=== PATIENT | female | born 1955 | race Caucasian/White ===

== ENCOUNTER 2020-10-15 10:46 | Outpatient (REF) | payer MEDICAID, SELFPAY ==
--- NOTE | 2020-10-15 11:01 | XR_ITS ---
EXAMINATION: XR KNEE, RIGHT CLINICAL INFORMATION: Polyarthritis. COMPARISON: None TECHNIQUE: Four views of the right knee. FINDINGS: Mild medial femoral-tibial joint space narrowing is seen. Mild patellofemoral degenerative joint changes are seen. There is no acute fracture or dislocation. There is no joint effusion. The soft tissues are unremarkable. XR/XR knee RT 4V IMPRESSION: Mild medial femoral-tibial joint space narrowing may be degenerative in nature. Mild patellofemoral degenerative joint changes suggesting osteoarthritis.
--- NOTE | 2020-10-15 11:01 | XR_ITS ---
EXAMINATION: XR KNEE, LEFT CLINICAL INFORMATION: Polyarthritis. COMPARISON: None TECHNIQUE: Four views of the left knee. FINDINGS: Mild medial femoral-tibial joint space narrowing is seen. There is no acute fracture or dislocation. There is no joint effusion. The soft tissues are unremarkable. XR/XR knee LT 4V IMPRESSION: Mild medial femoral-tibial joint space narrowing may be degenerative in nature suggesting mild osteoarthritis.
== END 2020-10-15 10:47 | disposition home or self-care (01) ==
LOC: HO.XRAY 10:46
PROVIDERS: PCP Internal Medicine; Visit Provider Internal Medicine
DX: M15.8 Other polyosteoarthritis (principal)
CPT/HCPCS: 73564

== ENCOUNTER 2022-07-07 08:50 | Outpatient (REF) | payer MEDICAID, SELFPAY ==
--- NOTE | ~2022-07-07 | MM_ITS ---
EXAMINATION: BONE DENSITOMETRY CLINICAL INDICATION: Asymptomatic menopausal state. COMPARISON: None (current study represents initial baseline exam). TECHNIQUE: Using a [employer] DXA System (software version: 13.1) manufactured by [employer], dual-energy x-ray absorptiometry was performed of the lumbar spine and left hip. The images are of good technical quality. Summary results are attached. FINDINGS: AP SPINE L1-L4: BMD 0.906 g/cm2, Z-score -0.6, T-score -2.3, osteopenia. LEFT FEMUR, NECK: BMD 0.815 g/cm2, Z-score -0.1, T-score -1.6, osteopenia. LEFT FEMUR, TOTAL: BMD 0.836 g/cm2, Z-score -0.1, T-score -1.4, osteopenia. IDENTIFIED RISK FACTORS: Menopause, history of fracture (adult). HISTORY OF FRACTURE: Pelvis, spine. Other. MEDICATIONS: Vitamin D. MM/XR DEXA axial skeleton IMPRESSION: 1. DIAGNOSIS: Osteopenia based on the lowest T-score value of -2.3 in the lumbar spine applying World Health Organization criteria. 2. 10-YEAR FRACTURE RISK PREDICTION, FRAX: Major osteoporotic fracture (clinical spine, forearm, hip or shoulder) 8.6%. Hip fracture 1.0%. 3. Treatment Recommendations: NOF guidelines recommend consideration for treatment in postmenopausal women and men age 50 and older presenting with the following: -A hip or vertebral (clinical or morphometric) fracture. -T-score less than or equal to -2.5 at the femoral neck or spine after appropriate evaluation to exclude secondary causes. -Low bone mass at the hip or spine and a 10-year fracture probability by FRAX of greater than or equal to 3% for hip fracture or greater than or equal to 20% for major osteoporotic fracture based on the [place] adapted WHO algorithm. 4. Other Recommendations: All treatment decisions require clinical judgment and consideration of individual patient factors, including patient preferences, comorbidities, previous drug use, risk factors not captured in the FRAX model (e.g. frailty, falls, vitamin D deficiency, increased bone turnover, interval significant decline in bone density) and possible under or overestimation of fracture risk by FRAX. Additional medical evaluation for secondary cause of low bone mineral density may be appropriate. FUTURE SCAN RECOMMENDATION: People with diagnosed cases of osteoporosis or at high risk for fracture should have regular bone mineral density tests. For patients eligible for Medicare, routine testing is allowed once every 2 years. The testing frequency can be increased to one year for patients who have rapidly progressing disease, those who are receiving or discontinuing medical therapy to restore bone mass, or have additional risk factors.
== END 2022-07-07 08:51 | disposition home or self-care (01) ==
LOC: HO.MAMMO 08:50
PROVIDERS: Visit Provider Internal Medicine
DX: Z13.820 Encounter for screening for osteoporosis (principal); Z78.0 Asymptomatic menopausal state
CPT/HCPCS: 77080

== ENCOUNTER 2022-08-25 08:46 | Outpatient (REF) | payer MEDICAID, SELFPAY | END 2022-08-25 08:47 | disposition home or self-care (01) | LOC: HO.US 08:46 | PROVIDERS: Visit Provider Surgery Vascular Surgery | DX: Z13.89 Encounter for screening for other disorder (principal) ==

== ENCOUNTER → 2023-07-04 08:47 | Outpatient (BNVA) | payer OTHER, SELFPAY | PROVIDERS: PCP Internal Medicine; Visit Provider Physician Assistant | DX: S63.613A Unspecified sprain of left middle finger, initial encounter (principal); X50.1XXA Overexertion from prolonged static or awkward postures, initial encounter; M54.50 Low back pain, unspecified; M25.552 Pain in left hip | CPT/HCPCS: 99204 ==

== ENCOUNTER → 2023-07-09 12:47 | Outpatient (BNVA) | payer OTHER, SELFPAY | PROVIDERS: PCP Internal Medicine; Visit Provider Physician Assistant Medical | DX: S63.653A Sprain of metacarpophalangeal joint of left middle finger, initial encounter (principal); S39.012A Strain of muscle, fascia and tendon of lower back, initial encounter; Y99.0 Civilian activity done for income or pay; M25.552 Pain in left hip; M79.605 Pain in left leg | CPT/HCPCS: 99213 ==

== ENCOUNTER → 2023-07-25 10:32 | Outpatient (BNVA) | payer OTHER, SELFPAY | PROVIDERS: PCP Psychiatry & Neurology Psychiatry; Visit Provider Physician Assistant Medical | DX: S63.633A Sprain of interphalangeal joint of left middle finger, initial encounter (principal); X58.XXXA Exposure to other specified factors, initial encounter; M54.50 Low back pain, unspecified; M25.552 Pain in left hip | CPT/HCPCS: 99213 ==

== ENCOUNTER → 2023-08-15 11:45 | Outpatient (BNVA) | payer OTHER, SELFPAY | PROVIDERS: PCP Psychiatry & Neurology Psychiatry; Visit Provider Physician Assistant Medical | DX: S63.613D Unspecified sprain of left middle finger, subsequent encounter (principal); X50.1XXD Overexertion from prolonged static or awkward postures, subsequent encounter | CPT/HCPCS: 99213 ==

== ENCOUNTER 2023-08-31 13:00 | Outpatient (RCR) | payer OTHER, MEDICAID, SELFPAY ==
--- NOTE | 2023-07-12 15:39 | MHC.OT.EP ---
[address] [phone] Occupational Therapy Plan of Care Patient Name: Amy Tristan Date of Evaluation: 07/12/23 Diagnosis: Left third digit sprain Pain Location: Left index finger Current: 8/10 Best: 8/10 Pain Score: 8 Pain Scale Used: Numeric (0 - 10) Aggravating Factors: Digit flexion, forceful grasp Alleviating Factors: Ice, medication Assessment: Pt is a 68 y/o female who sustained fall while at work resulting in left middle finger sprain. Utilized phone floor scraper to assist with evaluation questions. Pt presents with 8/10 pain in left middle finger, decreased joint ROM, decreased gross grasp strength, and difficulty performing ADL/IADL/work duties. An 88% limitation is reported per the Quick DASH assessment. Pt. will benefit from skilled OT to address noted barriers and assist in return to PLOF. Frequency and Duration: The patient will be seen 2x/wk for 4 weeks Short Term Goals: IND with jessica taping or orthosis wear Decrease pain <4/10 IND with HEP C4 Planner Goals: Pain free with BADL's/IADL's IND with progression of HEP Improve gross grasp >20# Quck DASH <40% Treatment Plan: Therapeutic Exercise Therapeutic Activity Home Exercise Program Splinting Patient Education Edema Control Ultrasound Fluidotherapy MHP Cold Packs Joint Mobilization Soft Tissue Mobilization Kinesiotaping Electronically Signed By: Claritza Jennings MS OTR/L Please Sign and return to therapist. Thank you once again for your referral.
--- NOTE | 2023-09-14 13:30 | MHC.OT.DC ---
[address] [phone] F: [phone] Occupational Therapy Discharge Note Patient Name: Amy Tristan Provider: Karen Ang Diagnosis: Left third digit sprain Date of Evaluation: 07/12/23 Date of Discharge: 09/14/23 Treatments to Date: 10 Cancellations to Date: 0 No Shows to Date: 6 Discharge Status: Improved Function Independent with HEP Recommend MD Follow-up Visit Non-compliance Discharge Summary: MS TRISTAN WAS SEEN FOR TEN OT RX SESSIONS. DURING HER COURSE, SHE FELT PAIN RELIEF WITH USE OF HEAT MODALITIES AND ISOMETRIC EXERCISES. Pt ALSO EDUCATED ON JT PROTECTION STRATEGIES FOR HOME AND WORK RELATED TASKS. DUE TO THE CORE ATTENDANCE POLICY, Pt WILL BE DISCHAREGED DUE TO VISIT NONCOMPLIANCE. Electronically Signed By: IVANA LAU OTR/Shilo Reviewed/agree with student documentation: N/A Therapist: Please Sign and return to therapist, thank you for your referral.
== END 2023-09-14 13:30 | disposition home or self-care (01) ==
LOC: HO.OT 13:00
PROVIDERS: PCP Psychiatry & Neurology Psychiatry; Visit Provider Physician Assistant Medical
DX: S63.613D Unspecified sprain of left middle finger, subsequent encounter (principal)
CPT/HCPCS: 97035; 97110; 97140; 97165

== ENCOUNTER → 2023-09-05 09:01 | Outpatient (BNVA) | payer OTHER, SELFPAY | PROVIDERS: PCP Psychiatry & Neurology Psychiatry; Visit Provider Physician Assistant Medical | DX: M79.642 Pain in left hand (principal) | CPT/HCPCS: 99213 ==

== ENCOUNTER 2023-09-14 16:05 | Outpatient (REF) | payer OTHER, SELFPAY | END 2023-09-14 16:06 | disposition home or self-care (01) | LOC: HO.HOSX 16:05 | PROVIDERS: Visit Provider Orthopaedic Surgery | DX: Z13.89 Encounter for screening for other disorder (principal) ==

== ENCOUNTER 2023-09-25 08:01 | Outpatient (REF) | payer OTHER, SELFPAY ==
--- NOTE | ~2023-09-25 | XR_ITS ---
EXAMINATION: XR HAND, LEFT CLINICAL INFORMATION: Pain in left hand. COMPARISON: Left finger 07/04/2023, 3rd digit TECHNIQUE: PA, lateral, and oblique views of the left hand. FINDINGS: Moderate degenerative changes in the 1st carpometacarpal joint with joint space narrowing and hypertrophic change. The bones are diffusely demineralized. Moderate degenerative changes with hypertrophic change and joint space narrowing in the 5th MCP joint as well as in scattered interphalangeal joints, most notable in the 2nd DIP joint. XR/XR hand LT min 3V IMPRESSION: Moderate degenerative changes. Recommend followup imaging in 10-14 days if fracture is suspected. Additional imaging with CT scan or MRI should be considered for better visualization as these modalities are much more sensitive for detection of fracture or other underlying pathology.
--- NOTE | ~2023-09-25 | XR_ITS ---
Examination: Skull, chest and abdomen. Clinical indications: Pre-MRI screening TECHNIQUE: Skull 2 views. Chest one view and KUB one view. FINDINGS: Skull: AP and lateral views of skull reveals no radiopaque foreign body. The paranasal sinuses and mastoid air cells are well-aerated. No calvarial abnormality seen. CHEST: The lungs are well-expanded and clear. The heart size and pulmonary vascularity is normal. There is mild dextroscoliosis mid dorsal spine. No radiopaque foreign body seen. There are no pacer electrodes or any hardware. KUB: There is moderate stool in the colon. Small phlebolith are visualized in the right pelvis. No radiopaque metallic foreign body. No gross bony abnormality. XR/XR pre mri screening IMPRESSION: No radiopaque foreign body or metallic objects seen on pre-MRI screening of skull, chest and abdomen exam
== END 2023-09-25 08:02 | disposition home or self-care (01) ==
LOC: HO.MRI 08:01
PROVIDERS: PCP Internal Medicine; Visit Provider Physician Assistant Medical
DX: M79.642 Pain in left hand (principal); M79.602 Pain in left arm
CPT/HCPCS: 73130

== ENCOUNTER → 2023-09-28 13:55 | Outpatient (BNVA) | payer OTHER, SELFPAY | PROVIDERS: PCP Internal Medicine; Visit Provider Physician Assistant Medical | DX: S63.613D Unspecified sprain of left middle finger, subsequent encounter (principal); X50.1XXD Overexertion from prolonged static or awkward postures, subsequent encounter | CPT/HCPCS: 99213 ==

== ENCOUNTER 2025-08-31 18:49 | Emergency (ER) | payer OTHER, SELFPAY ==
--- NOTE | ~2025-08-31 | CT_ITS ---
CLINICAL HISTORY: Fall hit head CT cervical spine without contrast Comparison: None provided Findings: Normal vertebral body alignment. No significant degenerative change. Mild osteopenia. Visualized intracranial contents are unremarkable. The right thyroid lobe is hypertrophic and heterogeneous in attenuation. Lung apices are clear. IMPRESSION: 1. Right thyroid lobe hypertrophy and heterogeneity; nonemergent thyroid ultrasound correlation suggested. 2. Mild osteopenia. 3. No acute osseous injury. This document has been electronically signed by: Talib Loyd MD on 08/31/2025 21:22:42
--- NOTE | ~2025-08-31 | CT_ITS ---
CLINICAL HISTORY: Fall CT head without contrast Comparison: None provided Findings: No intra-axial mass, midline shift, hydrocephalus, or acute hemorrhage. No significant atrophy-like change or white matter disease. The visualized paranasal sinuses and mastoid air cells are normal. The orbits are within normal limits. There is no acute fracture. IMPRESSION: 1. No acute intracranial findings. This document has been electronically signed by: Talib Loyd MD on 08/31/2025 21:39:45
[2025-08-31 18:54] VITALS: BP 146/98; PULSE 65; O2SAT 98
[2025-08-31 19:22] VITALS: BP 149/83; PULSE 63; RESP 18; TEMP 35.9; O2SAT 98; BMI 21.4
--- NOTE | 2025-08-31 19:28 | ED.GENADULT ---
HPI - General Adult General Chief complaint: Fall Stated complaint: fall +head strike, no thinners Time Seen by Provider: 08/31/25 20:19 Source: patient Limitations: language barrier History of Present Illness ED Provider: Ijeoma Tobin PA-C HPI narrative: 70-year-old female presents after fall. Patient states she was at work, she tripped, falling onto her left side with positive head strike. No loss consciousness the patient is not on blood thinners. Associated headache at this time. Related Data Previous Rx's ?Medication ?Instructions ?Recorded naproxen 500 mg tablet 500 mg PO BID PRN pain #30 tabs 07/04/23 cyclobenzaprine 5 mg tablet 5 mg PO BEDTIME PRN muscle spasm 07/09/23 #10 tabs Allergies Allergy/AdvReac Type Severity Reaction Status Date / Time No Known Allergies Allergy Verified 08/31/25 19:23 Review of Systems Review of Systems: Yes all other systems are reviewed and are negative Constitutional: Constitutional: Denies fatigue, Denies fever(s) and Denies headache(s) ENT: Denies dizziness, Denies headache(s) and Denies neck pain Cardiovascular: Cardiovascular: Denies syncope Gastrointestinal: Gastrointestinal: Denies nausea and Denies vomiting Musculoskeletal: Musculoskeletal: Denies neck pain Neurologic: Denies dizziness, Denies syncope and Denies headache(s) Endocrine: Endocrine: Denies fatigue PMF Past Medical History Attestation statement: The following information was validated with the patient. Social History Social History (Updated 09/07/22 @ 16:05 by Brayan Dominguez) Alcohol intake: never Patient Tobacco Use Status: Never used Tobacco Smoked in Last 30 Days: No Use of substances other than those prescribed or required for medical reasons: No Advance Directives: No Advance Directives Information Provided: Yes Physical Exam ED Vital Signs: Vital Signs - 24 hr 08/31/25 19:22 08/31/25 21:22 08/31/25 22:10 Temperature 96.7 F L 98.3 F 98.3 F Pulse Rate 63 64 64 Respiratory Rate 18 18 18 Blood Pressure 149/83 H 157/88 H 157/88 H Pulse Oximetry 98 96 96 Oxygen Delivery Method Room Air Room Air Room Air BMI result Body Mass Index 21.4 Const Other: Alert well-appearing no evidence of head trauma on exam Orientation/consciousness: patient oriented x3 Neck Neck: Yes full ROM Resp Effort & Inspection: normal respiratory effort Cardio Other: Normal peripheral perfusion Skin Other: Warm dry no rash Neuro General: patient oriented x3, gait normal, no focal motor deficits and CN's II-XI intact bilaterally Psych Other: Cooperative Medications Administered Discontinued Medications Generic Name Dose Route Start Last Admin Trade Name Freq PRN Reason Stop Dose Admin Ibuprofen 600 mg 08/31/25 21:52 08/31/25 22:16 Ibuprofen 600 Mg Tablet PO 08/31/25 21:53 600 mg ONCE ONE Administration Medical Decision Making Medical Decision Making [facility] Narrative: 70-year-old female presents after fall. Patient states she was at work, she tripped, falling onto her left side with positive head strike. No loss consciousness the patient is not on blood thinners. Associated headache at this time. No chronic issues History: Per patient I have considered the following differential diagnoses: Intracranial hemorrhage, cervical spine injury, contusion, concussion Plan: CTs of head and neck were ordered from triage, I do not feel she required the studies, everything is negative. I have independently reviewed the following tests: CT brain:Findings: No intra-axial mass, midline shift, hydrocephalus, or acute hemorrhage. No significant atrophy-like change or white matter disease. The visualized paranasal sinuses and mastoid air cells are normal. The orbits are within normal limits. There is no acute fracture. IMPRESSION: 1. No acute intracranial findings. CT cervical spine:. Right thyroid lobe hypertrophy and heterogeneity; nonemergent thyroid ultrasound correlation suggested. 2. Mild osteopenia. 3. No acute osseous injury. Differential Diagnosis Differential Diagnoses: The differential diagnosis associated with the presentation includes See medical decision-making Admission/Observation Consideration of admission/observation: Escalation of care including admission/observation considered Not applicable Radiology Impression Discussion of test interpretation with radiology: I have reviewed the radiologist's reading. Discharge Plan Discharge Clinical Impression: Contusion of forehead Patient Disposition: Home, Self-Care Instructions: Facial Contusion (ED) Additional Instructions: The CT scan of your head and neck were normal, you sustained a contusion of your forehead when you fell, this is another word for bruise. See home care instructions. You can ibuprofen 600 mg taken every 6 hours with food for your pain. Follow up with your primary care provider as needed. Prescriptions: No Action naproxen 500 mg tablet 500 mg PO BID PRN (Reason: pain) Qty: 30 0RF cyclobenzaprine 5 mg tablet 5 mg PO BEDTIME PRN (Reason: muscle spasm) Qty: 10 0RF Rx Instructions: Do not drive or operate machinery for 8 hours after taking this medicine Stand Alone Forms: Work/School Release Interventions: ED Discharge Assessment Last Done: 08/31/25 22:10 Discharge Date/Time: 08/31/25 22:42 Print Language: Croatian
--- OUTSIDE RECORDS SUMMARY | 2025-08-31 20:51 | XMS_ITS | Clinical Summary ---
Author Organization [employer] Address [address] [place] [address] Care Team Providers Care Bale Coverer Name Role Phone Tramaine Baldwin MD Primary Care Prov ider Allergies No known active allergies Medications naproxen (Naprosyn) 250 MG tablet Take by mouth. Active omeprazole (PriLOSEC) [address] capsule Take 1 capsule (20 mg) by mouth before breakfast. Do not crush or chew. 90 capsule 3 04/02/2023 Active Active Problems Problem Noted Date Diagnosed Date Varicose veins of both lower extremities with pa in 05/11/2023 Assessment & Plan (05/11/2023 2:16 PM EDT): Will place vascular surgery referral, told to wear compression stocking during the day Gastroesophageal reflux disease without esophagi tis 02/08/2023 Assessment & Plan (02/08/2023 5:03 PM EDT): On PPI, reinforced lifestyle changes, continue current treatment. Multiple joint pain 02/08/2023 Assessment & Plan (02/08/2023 5:04 PM EDT): Will start meloxicam, told she can also apply cold pads, if joint pain worsening depending on site we can consider PT Osteopenia of lumbar spine 02/08/2023 Assessment & Plan (02/08/2023 5:05 PM EDT): Continue oral supplement, repeat test in 2 years 06/2024 H/O colonoscopy 02/08/2023 Assessment & Plan (02/08/2023 5:06 PM EDT): Patient refer she got her colonoscopy done, will request results Mammogram declined 02/08/2023 Assessment & Plan (02/08/2023 5:07 PM EDT): Patient refused mammogram risk/benefits discussed Screening for cervical cancer 02/08/2023 Assessment & Plan (02/08/2023 5:07 PM EDT): Done on 02/10/22 next due on 2026 Social History Tobacco Use Types Packs/Day Years Used Date Smoking Tobacco: Never Tobacco Cessation:Counseling Given: Not Answered Depression Answer Date Recorded Patient Health Questionnaire-9 Score 0 01/11/2023 Housing Stability Answer Date Recorded What is your housing situation today? I have jean-paul richards 09/17/[address] you li ve. Do you have problems with any of the following? None of the above 09/17/2023 Food Insecurity Answer Date Recorded Within the past 12 months, y ou worried that your food would run out before you got money to buy more: Never True 09/17/2023 Within the past 12 months,th e food you bought just didn't last and you didn't have enough money to get more: Never True Transportation Answer Date Recorded In the past 12 months, has l ack of transportation kept you from medical appts, meetings, work or from getting things needed for daily living? No 09/17/2023 Utilities Answer Date Recorded In the past 12 months, has t he electric, gas, oil or water company threatened to shut off services in your home? No 09/17/2023 Depression Answer Date Recorded Patient Health Questionnaire-2 Score 0 01/11/2023 Comments Unknown Sex and Gender Information Value Date Recorded Sex Assigned at Female 09/25/2022 10:37 AM EDT Legal Sex Female 10:37 AM EDT Gender Identity Female 09/25/2022 10:37 AM EDT Sexual Orientation Straight 09/25/2022 10 :37 AM EDT Last Filed Vital Signs Vital Sign Reading Time Taken Comments Blood Pressure 138/88 05/11/2023 9:03 AM EDT Pulse 68 05/11/2023 9:03 AM EDT Temperature 36.6 C (97.8 F) 05/11/2023 9:03 AM EDT Respiratory Rate 16 05/11/2023 9:03 AM EDT Oxygen Saturation - - Inhaled Oxygen Concentration - - Weight 56.7 kg (125 lb) 05/11/2023 9:03 AM EDT Height 162.6 cm (5' 4 ) 05/11/2023 9:03 AM EDT Body Mass Index 21.46 05/11/2023 9:03 AM EDT Plan of Treatment Health Maintenance Due Date Last Done Comments CT Colonography 1957 Colonoscopy 1957 Colorectal Cancer Screening 1957 Dental Oral Exam 1957 Dental Prophylaxis 1957 Dental X-Ray: Full Mouth 1957 FIT DNA/Cologuard 1957 FIT 1957 FOBT 1957 Sigmoidoscopy 1957 Alcohol/Substance Use Screening 1969 Tobacco Screening 1969 Hepatitis C Screening 1975 DTaP/Tdap/Td Vaccines (1 - Tdap) 02/13/1976 Pneumococcal Vaccine: 50+ Years (1 of 1 - PCV) 2007 Zoster Vaccines (1 of 2) 2007 Dental X-Ray: Bitewings 10/28/2023 10/27/2022 Depression Screening 01/11/2024 01/11/2023, 01/11/2023 SDOH Screening 01/11/2024 01/11/2023 Mammogram 07/07/2024 07/07/2022 COVID-19 Vaccine (4 - 2024-2 6 season) 2025 11/18/2021, 05/03/2021, 04/12/2021 Influenza Vaccine (#1) 2025 RSV Patients and Patients Aged 60 years or older (1 - 1-dose 75+ series) 02/13/2032 Cervical Cancer Screening Discontinued HPV/Cotest Discontinued 02/10/2022 Pap Smear Discontinued 02/10/2022 HIB Vaccines Aged Out No longer eligi ble based on patient's age to complete this topic HPV Vaccines Aged Out No longer eligi ble based on patient's age to complete this topic Hepatitis A Vaccines Aged Out No long er eligible based on patient's age to complete this topic Hepatitis B Vaccines Aged Out No long er eligible based on patient's age to complete this topic IPV Vaccines Aged Out No longer eligi ble based on patient's age to complete this topic Meningococcal B Vaccine Aged Out No l onger eligible based on patient's age to complete this topic Meningococcal Vaccine Aged Out No saumya matt eligible based on patient's age to complete this topic RSV under 20 months Aged Out No longe r eligible based on patient's age to complete this topic Rotavirus Vaccines Aged Out No longer eligible based on patient's age to complete this topic Procedures Procedure Name Priority Date/Time Associated Diagnosis Comments BITEWING - SINGLE RADIOGRAPHIC IMAGE Routine 10/27/2022 2:00 PM EST MAMMOGRAM GENERIC Routine 07/07/2022 9:3 0 AM EDT THINPREP IMAGING PAP AND HPV MRNA E6/E7 WITH REFLEX TO HPV 16,18/45 Routine 02/10/2022 12:00 AM EDT from Last 3 Months or Most Recently Relevant to Health Maintenance Results * Mammography Report 1 (07/07/2022 9:30 AM EDT) Anatomical Region Laterality Modality Breast Bilateral Mammography 07/07/2022 9:30 AM EDT Narrative 07/07/2022 2:24 PM EDT Refer to the Notes tab for result details [facility] Procedure: Mammography Report 1 Procedure Note Provider, MD Marlene - 02/18/2023 Refer to the Notes tab for result details [facility] Procedure: Mammography Report 1 Tramaine Kim MD IMG BI PROCEDURES Final Result * THINPREP TIS PAP AND HPV mRNA E6/E7 WITH REFLEX TO HPV 16,18/45 (02/10/2022 12:00 AM EDT) Clinical Information: None given [facility] COMMENT SEE COMMENT [facility] Comment: EXPLANATORY NOTE: The Pap is a screening test for cervical cancer. It is not a diagnostic test and is subject to false negative and false positive results. It is most reliable when a satisfactory sample, regularly obtained, is submitted with relevant clinical findings and history, and when the Pap result is evaluated along with historic and current clinical information. COMMENT: This Pap test has been evaluated with computer assisted technology. [facility] Pill Coater: SEE COMMENT [facility] Comment: SXA, CT(ASCP) CT screening location: [place] [address] HPV nRNA E6/E7 Not Detected Not Detected [facility] Comment: Methodology: Oil Well Driller-Mediated Amplification This assay detects E6/E7 viral messenger RNA (mRNA) from 14 high-risk HPV types (16,18,31,33,35,39,45,51,52,56,58,59,66,68). The analytical performance characteristics of this assay have been determined by [employer]. The modifications have not been cleared or approved by the FDA. This assay has been validated pursuant to the CLIA regulations and is used for clinical purposes. For additional information, please refer to http://education.[employer]/faq/ZTY608b5 (This link if provided for information/ educational purposes only.) Interpretation/Re sult: Negative for intraepithelial lesion or malignancy. [facility] LMP: NONE [facility] Prev. BX: NONE [facility]IV[facility] Prev. PAP: NONE [facility]IV[facility] SOURCE: None given [facility] Statement Of Adequacy: SEE COMMENT [facility] Comment: Satisfactory for evaluation. Endocervical/transformation zone component present. 02/10/2022 Tramaine Kim MD LAB PATHOLOGY IRENE GARCIA Final Result [facility] [address] from Last 3 Months or Most Recently Relevant to Health Maintenance Insurance [employer] FULL MEDICARE Member Subscriber Plan / Payer (Ef fective 2023-Present) Name:Amy Tristan Member ID:[id number] Relation to Subscriber:Self Name:Amy Tristan Subscriber ID:[id number] Payer ID:STATE Group ID:Not on file Type:Medicare Address: [facility] [address] [address] [facility] Care Teams Bale Coverer Relationship Specialty Start Date End Date Tramaine Baldwin MD NPI: [id number] [place] [id number] PCP - General Internal Medicine 03/04/20
--- OUTSIDE RECORDS SUMMARY | 2025-08-31 20:51 | XMS_ITS | Encounter Summary ---
Author Organization [employer] Address [address] [place] [address] [address] [place] [address] Care Team Providers Care Supervisor [facility] Name Role Phone Tramaine Baldwin MD Primary Care Prov ider Reason for Visit * Reason Onset Date Comments Medication Question 04/02/2023 Encounter Details Date Type Department Care Team ([facility] st Contact Info) Description 04/02/2023 Telephone [facility] [address] [place] [address] Tramaine Baldwin MD [address] [place], [place] [phone] Medication Question Social History Tobacco Use Types Packs/Day Years Used Date Smoking Tobacco: Never Depression Answer Date Recorded Patient Health Questionnaire-9 Score 0 01/11/2023 Depression Answer Date Recorded Patient Health Questionnaire-2 Score 0 01/11/2023 Comments Unknown Sex and Gender Information Value Date Recorded Sex Assigned at Female 09/25/2022 10:37 AM EDT Legal Sex Female 10:37 AM EDT Gender Identity Female 09/25/2022 10:37 AM EDT Sexual Orientation Straight 09/25/2022 10 :37 AM EDT documented as of this encounter Miscellaneous Notes * Telephone Encounter - Faith Bailey - 04/02/2023 11:20 AM EDT Tc sally Turner from [facility] requesting for pcp to change script Omeprazole 20 MG tablet delayed-release to capsules instead of tablets due to not being covered . Any question may contact phone # [phone]. documented in this encounter Plan of Treatment Not on file documented as of this encounter Visit Diagnoses Not on filedocumented in this encounter Additional Health Concerns Assessment Noted Time PHQ-9 Depression Total Score: 0 01/11/20 23 2:41 PM EST documented as of this encounter Care Teams Supervisor [facility] Relationship Specialty Start Date End Date Tramaine Baldwin MD [address] [place] [id number] PCP - General Internal Medicine 03/04/20 documented as of this encounter
[2025-08-31 21:22] VITALS: BP 157/88; PULSE 64; RESP 18; TEMP 36.8; O2SAT 96
[2025-08-31 22:10] VITALS: BP 157/88; PULSE 64; RESP 18; TEMP 36.8; O2SAT 96
== END 2025-08-31 22:42 | disposition home or self-care (01) ==
PROVIDERS: Emergency Provider Emergency Medicine
DX: S09.90XA Unspecified injury of head, initial encounter (principal); S00.83XA Contusion of other part of head, initial encounter; W01.0XXA Fall on same level from slipping, tripping and stumbling without subsequent striking against object, initial encounter; Y93.9 Activity, unspecified; Y92.9 Unspecified place or not applicable; Y99.0 Civilian activity done for income or pay
CPT/HCPCS: 70450; 72125; 99284

== ENCOUNTER → 2025-08-31 19:26 | Outpatient (BNV) | payer OTHER, SELFPAY | PROVIDERS: Emergency Provider Emergency Medicine; Visit Provider Radiology Diagnostic Radiology | DX: S00.83XA Contusion of other part of head, initial encounter (principal); W19.XXXA Unspecified fall, initial encounter | CPT/HCPCS: 70450; 72125 ==